=== PATIENT | female | born 1955 | race Caucasian/White ===

== ENCOUNTER → 2019-01-16 | Outpatient (CLI) | payer SELFPAY ==
[2019-01-16 15:46] VITALS: BMI 23.4
--- NOTE | 2019-01-16 16:04 | RAD_ITS ---
STUDY: X-RAY - PELVIS AND RIGHT HIP REASON FOR EXAM: Female, 63 years old. Chronic pain TECHNIQUE: 3 views of the pelvis and hip. COMPARISON: None. FINDINGS: There is a non-specific bowel gas pattern. Normal visualized soft tissue structures. Normal bilateral iliac wings, sacroiliac joints and visualized sacrum. Normal bilateral superior and inferior pubic rami. There are degenerative changes of the pubic symphysis with articular narrowing and sclerosis. Normal bilateral ischial tuberosities. There is severe degenerative changes are seen of the right hip. Extensive subchondral cysts in the femoral head and acetabulum. Flattening of the femoral head. Complete loss of joint space in the craniocaudal dimension and moderate osteophytes. RAD/HIP, UNI W/ Pelvis 2-3 Views IMPRESSION: No acute fracture or dislocation. Severe osteoarthritis. Electronically Signed: Manuel Kwok MD at 16:47 EDT , Service support ,
== END | disposition home or self-care (01) ==
LOC: HPRAD 16:04
PROVIDERS: Referring Provider Orthopaedic Surgery; Visit Provider Orthopaedic Surgery
DX: M25.551 Pain in right hip (principal)
CPT/HCPCS: 73502

== ENCOUNTER 2019-01-23 07:58 | Outpatient (RCR) | payer OTHER, SELFPAY ==
[2019-01-16 15:46] VITALS: BMI 23.4
--- NOTE | 2019-01-23 09:24 | HP.PTEVAL ---
Patient's Visit Information YOEL KAMARA is a 63 year old F referred to Physical Therapy by Joe Weber DO with a diagnosis of SEVERE OA OF RIGHT HIP ,DEGENERATIVE SCOLIOSIS LEG LENGTH DISCEREPENCY. Date of Evaluation: 01/23/19 Physical Therapist: Karri Hernandez, PT, Cert MDT, OCS - Visit Plan Frequency: 1x/Week Duration: 3 Weeks Plan: PATIENT IS CANIDATE FOR THR. PT INTERVENTIONS AQUATIC THERAPY ROM/STRENGTHENING RIGHT HIP,DLS BACK ROM - Subjective Findings: This 63 y/o female presents to physical therapy with severe OA of right hip. Patient has had right hip pain for 5 years . Pateint seen DR Gimenez ,x-rays showed severe OA. Patient has degenerative sciolosis with length discrepency right shorter. Patient pain lateral hip deep described as ache . Aggravating factors with walking ,standing and stairs ,squatting.Aleviating factors rest. Pateint is active with job demands and housework tasks. Thes tasks are impaired with pain. Pateint sleeping okay at nighT. PPateint denies parathesia/tingling. Pateint condtion affects QOL and function. SOCAIL: single. VOCATION: Own Business Self employed - Pain Right Hip Pain Intensity (Out of 10): 2 Pain Intensity Range: 10 - Objective POSTURE: mild foward posture,right shorter ,right sciolosis. GAIT: antalgic gait with right side with decrease stance. NEURO: intact. LEG LENGTH: 2 shorter. AROM: hip flexion 100 degrees,abduction 30 degrees,IR 25 degrees,ER 30 degrees. MMT: quads/hams 4/5,hip flexion 4-/5,abd 3+/5. LUMBAR ROM: flexion min loss ,extension mod loss. STAIRS: one step at time with rail - Special Tests R Hip Scour: Positive R Hip FARRUKH - Intraarticular Pathology: Positive R Hip Trendelenberg - Glut Medius: Positive - Goals Goal 1:: Patient Independant with Aquatic PT Goal Time Frame: 4-6 Weeks Goal 2:: Patient decrease pain right hip 50% or > to improve gait Goal Time Frame: 4-6 Weeks Goal 3:: Patient to improve gait with stance time community distances Goal Time Frame: 4-6 Weeks Goal 4:: Pateint to improve AROM hip flexion/abd 5 degrees > to improve function Goal Time Frame: 4-6 Weeks Goal 5:: Pateint to increase strength hip 4-/5 to improve function with gai. Goal Time Frame: 4-6 Weeks - Rehabilitation Potential Physical Therapy Diagnosis: This patient has severe OA right hip with decrease ROM,strength right hip impairs gait and walking thus benifit from skilled PT. Rehabilitation Potential: Good - Anticipated Interventions Patient/Client Instruction: Educate patient on: Condition, Plan of Care For the Purpose of:: To decrease pain, To increase ROM, To improve muscle performance and motor function, To increase tolerance to activity/condition/position, To improve ability of physical actions for home/community/work/leisure, To improve gait and locomotor functions, To improve health of tissue, To increase flexibility/ROM, To improve balance, To improve safety with gait, To improve ability to perform tasks related to life management Therapeutic Exercise to Include: Strength training, Balance training, Flexibilty training, Gait and locomotor training, In an aquatic setting, Active ROM, Dynamic Lumbar Stabilization Comment: HIP RIGHT For the Purpose of:: To decrease pain, To increase ROM, To improve muscle performance and motor function, To improve ability to perform ADL's, To increase tolerance to activity/condition/position, To improve ability of physical actions for home/community/work/leisure, To improve gait and locomotor functions, To improve health of tissue, To decrease soft tissue restriction, To increase flexibility/ROM, To improve balance Thank you for the opportunity to evaluate your patient. For Medicare and Medicare HMO plans, please review the plan of care and approve it. It will need to be FAXED BACK to us at [phone] for Medicare purposes. For Medicare only, by signing this I certify the plan of care. Please let me know if there are questions or concerns regarding this plan of care. Physician Signature: Date:
--- NOTE | 2019-01-30 14:52 | HP.PTDCNRP_ITS ---
HP - Discharge Summary (1) - Patient Information YOEL KAMARA was seen in my office for initial evaluation on 01/23/19. The following Plan of Care was established for this patient: Initial Frequency: 1x/Week Initial Duration: 3 Weeks - Anticipated Interventions Patient/Client Instruction: Educate patient on: Condition, Plan of Care For the Purpose of:: To decrease pain, To increase ROM, To improve muscle perfo rmance and motor function, To increase tolerance to activity/condition/position, To improve ability of physical actions for home/community/work/leisure, To improve gait and locomotor functions, To improve health of tissue, To increase flexibility/ROM, To improve balance, To improve safety with gait, To improve ability to perform tasks related to life management Therapeutic Exercise to Include: Strength training, Balance training, Flexibilty training, Gait and locomotor training, In an aquatic setting, Active ROM, Dynamic Lumbar Stabilization For the Purpose of:: To decrease pain, To increase ROM, To improve muscle performance and motor function, To improve ability to perform ADL's, To increase tolerance to activity/condition/position, To improve ability of physical actions for home/community/work/leisure, To improve gait and locomotor functions, To improve health of tissue, To decrease soft tissue restriction, To increase flexibility/ROM, To improve balance This patient was last seen in our office . Pertinent comments regarding their Physical therapy will appear below: Patient was seen for PT for Evaluation for HEP . 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 Patient stated ex's are helping. Patient is d/c . At this point I will be discontinuing this patient from physical therapy. I would be happy to see this patient again in the future if found appropriate by the physician. Thank you! Karri Hernandez, PT, Cert MDT, OCS
== END 2019-01-23 19:00 | disposition home or self-care (01) ==
LOC: PT 07:58
PROVIDERS: Referring Provider Orthopaedic Surgery; Visit Provider Orthopaedic Surgery
DX: M16.11 Unilateral primary osteoarthritis, right hip (principal); M41.50 Other secondary scoliosis, site unspecified; M21.70 Unequal limb length (acquired), unspecified site
CPT/HCPCS: 97110; 97161

== ENCOUNTER → 2020-07-06 10:01 | Outpatient (CLI) | payer OTHER, SELFPAY ==
[2019-01-16 15:46] VITALS: BMI 23.4
[2020-07-06 12:38] LABS: Anion Gap 6 (5-15); BUN 12 mg/dL (7-18); BUN/Creat Ratio 15.3 RATIO (10-20); Calcium,Total 9.3 mg/dL (8.5-10.1); Chloride 105 mmol/L (98-107); Cholesterol 226 mg/dL (200); Creatinine, Serum 0.78 mg/dL (0.55-1.02); EST Glomerular Filtration Rate 79 mL/min (>60); Est Glom Filt Rate - Afr Amer 95 mL/min (>60); Glucose 84 mg/dL (74-106); High Density Lipoprotein 64 mg/dL; Sodium Level 140 mmol/L (136-145); Triglycerides 120 mg/dL; Very Low Density Lipoprotein 24 mg/dL (5-40)
[2020-07-06 12:43] LABS: Vitamin D,25 Hydroxy 23.7 ng/mL
== END ==
PROVIDERS: PCP Family Medicine; Visit Provider Family Medicine
DX: Z00.00 Encounter for general adult medical examination without abnormal findings (principal)
CPT/HCPCS: 36415; 80048; 80061; 82306

== ENCOUNTER → 2020-07-07 09:05 | Outpatient (CLI) | payer OTHER, SELFPAY ==
[2019-01-16 15:46] VITALS: BMI 23.4
--- NOTE | 2020-07-07 09:09 | BD_ITS ---
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 COMPARISON: None. FINDINGS: Lumbar Spine (L1-L4): g/cm2 (0.940) / T-score (-2.0) / Z-score (-0.4) Findings are suggestive of osteopenia with a moderate fracture risk. Left Femur Total: g/cm2 (0.840) / T-score (-1.3) / Z-score (-0.2) Left Femoral Neck: g/cm2 (0.715) / T-score (-2.3) / Z-score (-0.9) Right Femur Total: g/cm2 (0.730) / T-score (-2.2) / Z-score (-1.0) Right Femoral Neck: g/cm2 (0.786) / T-score (-1.8) / Z-score (-0.4) BD/Dexa Bone Density Study IMPRESSION: The patient is considered osteopenic as outlined below according to World Freddie Organization (WHO) criteria with a high fracture risk. Reference Information: The T-score is the number of standard deviations above or below the standard which is normal for young adults at their peak bone mineral density. The World Health Organization (WHO) interprets the T-scores as follows: Above -1 Normal bone density Between -1 and -2.5 Osteopenia Equal to / or below -2.5 Osteoporosis As a practical clinical guideline, osteopenia may be graded as follows: Mild -1 through -1.5 Moderate -1.6 through -2.0 Severe -2.1 through -2.4 The Z-score is the number of standard deviations above or below age-matched controls. A Z-score of less than -1.5 would be considered abnormal. References: 1. NIH Osteoporosis and Related Bone Diseases www osteo.org 2. International Society for Clinical Densitometry www iscd.org 3. National Osteoporosis Foundation www nof.org Electronically Signed: Sp Bernardo MD at 12:46 EST , Service support ,
== END ==
PROVIDERS: PCP Family Medicine; Referring Provider Family Medicine; Visit Provider Family Medicine
DX: Z12.31 Encounter for screening mammogram for malignant neoplasm of breast (principal)
CPT/HCPCS: 77080

== ENCOUNTER → 2021-11-05 | Outpatient (CLI) | payer MEDICARE, SELFPAY ==
[2021-11-05 15:18] LABS: Absolute Lymphocyte Count 1.58 X10^3/uL (0.83-4.51); Absolute Neutrophil Count 3.8 X10^3/uL (2.0-7.7); Basophil# 0.04 X10^3/uL; Basophil% 0.7 % (0-1); Eosinophil# 0.12 X10^3/uL; Hematocrit 38.5 % (37-47); Hemoglobin 12.9 g/dL (12.0-15.0); Lymphocyte # 1.58 X10^3/ul (0.83-4.51); Lymphocyte % 26.3 % (19-41); Mean Corp Hgb Conc 33.5 g/dL (32-36); Mean Corpuscular Hgb 30.5 pg (27.0-32.0); Mean Platelet Vol. 9.9 fl (6.2-12.0); Monocyte# 0.44 X10^3/uL; Monocyte% 7.3 % (0-10); NRBC Flagged by Analyzer 0 % (0-5); Neutrophil # 3.81 X10^3/uL (2.7-7.7); Neutrophil % 63.4 % (47-70); Platelet Count 260 K/mm3 (150-450); RBC Distribution Width SD 39.9 fl (35.1-43.9); Red Blood Count 4.23 M/mm3 (4.2-5.4)
[2021-11-05 15:54] LABS: ALB/GLOB Ratio 1.1 RATIO (0.9-2.4); Albumin, Serum 3.9 g/dL (3.2-5.0); BUN 14 mg/dL (7-18); BUN/Creat Ratio 17.2 RATIO (10-20); Creatinine, Serum 0.82 mg/dL (0.55-1.02); EST Glomerular Filtration Rate 75 mL/min (>60); Est Glom Filt Rate - Afr Amer 90 mL/min (>60); Globulin 3.4 g/dL (2.2-4.2); Glucose 84 mg/dL (74-106); Protein, Total 7.3 g/dL (6.4-8.2)
[2021-11-05 15:55] LABS: AST(SGOT) 9 U/L (15-37); Alanine Aminotransfer ALT/SGPT 18 U/L (13-56); Alkaline Phosphatase 59 U/L (45-117); Anion Gap 5 (5-15); Calcium,Total 9.3 mg/dL (8.5-10.1); Chloride 105 mmol/L (98-107); Potassium 3.9 mmol/L (3.5-5.1); Sodium Level 139 mmol/L (136-145)
== END | disposition home or self-care (01) ==
LOC: MFPLAB 11:56
PROVIDERS: PCP Family Medicine; Referring Provider Family Medicine; Visit Provider Family Medicine
DX: Z01.818 Encounter for other preprocedural examination (principal)
CPT/HCPCS: 36415; 80053; 85025

== ENCOUNTER 2021-12-01 06:56 | Observation (INO) | payer MEDICARE, SELFPAY ==
--- NOTE | 2021-11-15 13:07 | PCM.HP.BLA ---
History and Physical History and Physical [facility] Patient Name: Melly Galeana : 1955 From:? SPIKE MANUEL PA-C? DATE OF SURGERY:? 12/01/2021 SCHEDULED PROCEDURE:? right total hip arthroplasty HISTORY OF PRESENT ILLNESS: Preoperative history and physical exam was performed on November 15, 2021.? This is a 66-year-old female who is been having ongoing pain for over 3 years.? She was initially seen by other orthopedic group in the past.? She has been through previous caretaker, massage therapy, physical therapy.? She has always felt she has a shorter leg on the right when compared to the left.? She had no help with any conservative measures with therapy.? She has had continued pain with the right hip.? She does get started up pain.? Pain is increased with going up and down stairs, walking, sitting, driving and getting in and out of a car.? Patient reports her symptoms have continued to progress over the years.? She has difficulty with activities of daily living including getting dressed.? Also difficulty with leisure activity such as pickle ball, dancing, running, riding a lawnmower.? Patient denies previous surgery on the right hip.? She began using a walker approximately one week ago.? She denies any chest pain, shortness of breath, fevers chills or recent infections.? After failing conservative measures and discussing treatment options with Shilo Payan, the patient does wish to proceed with a right total hip arthroplasty.? We have obtain surgical clearance and the primary care physician Dr. Acosta.? Preoperative lab work and EKG has been performed by the primary care physician. REVIEW OF SYSTEMS: Review Of Systems: Constitutional: Reports weight change, but denies change in appetite and fever. Cardiovasular: Denies chest pain, heart murmur and irregular heartbeat. Respiratory: Denies cough, pneumonia, shortness of breath, tuberculosis and wheezing. Gastrointestinal: Denies constipation, diarrhea, heartburn, nausea, rectal itching, bloody stools and vomiting. Genitourinary: Denies incontinence. Musculoskeletal: Reports trouble walking and weakness, but denies leg swelling and pain. Skin: Denies Raynaud's, history of shingles and tattoo. Neurological: Denies ambulatory dysfunction, dizziness, numbness/tingling and tremor. Psychiatric: Denies anxiety, insomnia and stress. Hematologic/Lymphatic: Denies anemia, bleeding/bruising tendency and past transfusion. Reviewed, no changes. PAST MEDICAL HISTORY: Advance Care Plan: No Advance Directives Effective Date: 08/30/2021 Past Medical History: Medical Problems: No Current Problems Accidents: None Surgical Hx: Section - X3 1979 1987 [facility] Anesthesia Complications: Anesthesia Complications - IN 1979 DURING LABOR PT STATES THEY WATCHED HER CLOSELY FOR TWO DAYS AFTER HAVING ANESTHESIA .. PT NOT SURE WHY? Assistive Devices: Glasses Reviewed and updated. SOCIAL HISTORY: Social History: Marital: .Occupation: Elder Care - SELF EMPLOYED.Work Status: Currently Working.Hand Dominance: Right-handed. Personal Habits:? Cigarette Use: Never Smoked Cigarettes.Smokeless Tobacco: Never Used Smokeless Tobacco.E-Cigarette Use: Never used.Alcohol: Denies use.Drug Use: Denies Use.Enjoy Exercising: Daily. Reviewed, no changes. VITALS: Ht: 60 Wt: 115lb Wt k.164 BMI: 22.5 BP: 128/76 Pulse: 68 Resp: 16 T: 97.9 T: 36.6C Pain Level: 0 O2SatR: 100 ALLERGIES: No Known Drug Allergy? MEDICATIONS: Vitamin D3 10 mcg (400 Unit) 1 by mouth every day, Balance Of Nature Veggies? dietary supplement, Balance Of Nature Fruits? dietary supplement, Vitamin K2-Vitamin D3 45-2000 mcg-Unit 1 by mouth every day, QC Tumeric Complex 500 mg 1 by mouth every day, Vitamin C 500 mg, High-Protein Nutritional Shake? PRE-OP EXAM:? General appearance:NORMAL? ? ? Other: Eyes: Conjunctivae and lids: NORMAL? Pupils: ERR Ears, Nose, Mouth, and Throat: NORMAL? Other: Inspection of lips, teeth and gums: NORMAL? ?Other: Neck: Examination of neck: no masses noted. Respiratory: Assessment of respiratory effort: NORMAL? ?Other: ?Auscultation of lungs: clear to auscultation no wheezes, rhonchi or rales. Cardiovascular:? Auscultation of heart: regular rate and rhythm, no murmurs, gallops or rubs. PHYSICAL EXAMINATION: Patient currently walks with an antalgic gait with use of walker.? Patient complains of right groin pain.? Range of motion: Hip flexion 50, internal rotation approximately 15, external rotation 5.? Patient does have an approximate 2 cm higher iliac crest on the right than the left and feels 3 cm short.? Sensation intact to light touch to bilateral lower extremity. IMAGING STUDIES: Previous x-rays of the right hip reveal joint space narrowing with subchondral sclerosis and osteophyte formation consistent with severe stage IV erosive osteoarthritis.? There are femoral and acetabular cyst collapse and erosion of the lateral acetabular dome and femoral head.? Previous lumbar x-rays reveal L4-L5 spondylolisthesis and mild amount of scoliosis associated with significant pelvic tilt with the right iliac crest being higher than the left consistent with her examination IMPRESSION: 1.? Severe right hip osteoarthritis 2.? Lumbar L4-L5 spondylolisthesis with scoliosis PLAN: Dr. Shilo Sheikh did discuss and review with the patient all treatment options including surgical versus nonsurgical options.? Patient does wish to proceed with the above-stated procedure.? Potential risks, benefits, and complications of the procedure were discussed in detail including but not limited to , infection, nerve and blood vessel damage, persistent pain, numbness, tingling, paresthesias, blood clot, pulmonary embolism, and requirement for possible further surgery.? The patient expressed full understanding and has no further questions for the doctor.? Patient does agree to proceed with the above-stated procedure and has signed the surgery consent form. We discussed the current risks associated with COVID 19.? This does include the risk of exposure while in the hospital.? Patient was reassured local hospitals have low infection rates and are taking all necessary precautions to avoid exposure to patients.? In addition, we discussed strategies that can be used to help limit exposure including those that limit the patient's time in the hospital.? Also using strategies to limit the patient's need for continued inpatient services after being discharged from the hospital.? Patient was notified that we will need to comply with any screening or testing the hospital wishes to perform or that surgery may be delayed for any positive results. This dictation was created using voice recognition software. Phonetic and/or grammatical errors may exist. ___? I have re-examined the patient.? There are no clinical changes since date of exam. ___? See progress notes for changes. ___? Dictated on admission Date: ? ? ?Time: Signature:
[2021-11-16 13:05] LABS: Magnesium 2.2 mg/dL (1.6-2.6)
[2021-12-01] VITALS (16 sets, daily range): BP systolic 115–162; BP diastolic 53–101; PULSE 56–82; RESP 14–18; TEMP 36.4–37; O2SAT 97–100; BMI 22.4
[2021-12-01] MEDS: Lactated Ringers 1,000 ML 999 ML IV ×2 (06:08→09:30)
[2021-12-01] MEDS: Celecoxib 200 MG Capsule 400 MG PO (06:09)
[2021-12-01] MEDS: Acetaminophen 500 MG Tablet 1000 MG PO ×3 (06:10→21:48)
[2021-12-01] MEDS: Gabapentin 600 MG Tablet PO (06:10)
[2021-12-01 06:30] LABS: Bedside Glucose 112 mg/dL (74-106)
--- NOTE | 2021-12-01 06:30 | RAD_ITS ---
STUDY: X-RAY - PELVIS AND RIGHT HIP REASON FOR EXAM: Female, 66 years old. PAIN TECHNIQUE: 1 views of the pelvis and hip. COMPARISON: None. FINDINGS: Intraoperative imaging provided for anterior right total hip replacement. RAD/Hip 1 view with Pelvis IMPRESSION: Intraoperative imaging provided for anterior right total hip replacement. Electronically Signed: pS Bernardo MD at 14:46 EDT ,
--- NOTE | 2021-12-01 06:57 | RAD_ITS ---
STUDY: X-RAY - PELVIS AND RIGHT HIP REASON FOR EXAM: Female, 66 years old. Post Op -- AP both hips on single elver/lateral of op hip PACU TECHNIQUE: 2 views of the pelvis and hip. COMPARISON: Comparison is made with prior study dated 01/16/2019. FINDINGS: The patient is status post right total hip preplacement. There is good alignment. Postoperative soft tissue changes. RAD/Hip Min 2 Views (Portable) IMPRESSION: Status post right total hip replacement. There is good alignment. Postoperative soft tissue changes. Electronically Signed: Sp Bernardo MD at 9:56 EDT ,
--- NOTE | 2021-12-01 06:59 | PCM.OPRPT ---
Report of Operation Date of Procedure: 12/01/21 Pre-Operative Diagnosis: Right hip primary osteoarthritis Post-Operative Diagnosis: Right hip primary osteoarthritis Surgery/Procedure Performed:: Right minimally invasive direct anterior total hip replacement Description of Surgical Findings:: Stable hip with equal leg length Surgeon: Shilo Sheikh front tender: Christian Pulliam Type of Anesthesia: Spinal Anesthesiologist: Reuben Hummel Special Medications: 2 g Ancef, 1 g TXA at incision, 1 g TXA closure, 10 mg Decadron, joint cocktail (5 mg Duramorph, 30 mL of 0.5% Ropivicaine, 1000 units of epinephrine, 30 mg of Toradol) Specimen's removed: Bony cuts Estimated Blood Loss (mL): 200 Fluids Replaced: 900 ml crystalloid Description of Procedure: Components used: 1. Accolade 2 [place] femoral stem size 3 132? 2. [place] trident 2 acetabular shell size 52 mm 3. Cory X3 polyethylene E 4. [place] Biolox delta 36mm, 0mm femoral head Brief history operative indications: 66 yo f who failed conservative measures for their hip osteoarthritis. X-rays were consistent with osteoarthritis including joint space narrowing, osteophyte formation and subchondral cysts. Total hip replacement was discussed with the patient with risks and benefits including but not limited to blood loss, DVTs, PEs, neurovascular damage, dislocation, general risks of anesthesia including loss of life. Patient demonstrated an understanding medical clearance is obtained the patient was consented for surgery. Procedure: On the date of procedure the patient's right hip was marked in the preoperative area. Patient was then taken back to the operating room where anesthesia assumed control of the C-spine and airway and administered anesthetic. Patient was transferred to the operating table and placed in the supine position. The hips were placed at the break of the bed and a sacral bump was placed. The right lower extremity was then prepped out in a sterile fashion using chlorhexidine while the surgeon scrubbed. The PA was vital in the positioning of the patient. Upon reentering the room the right lower extremity was draped in the standard orthopedic fashion and the incision was marked. A timeout was called and everyone agreed upon the side, the site, the procedure be performed, antibody given, and patient's identity. At this time incision was made through skin, subcutaneous tissue, and fat down to fascia. The fascia was then incised and the TFL was retracted laterally. A retractor was placed on the lateral border of the femoral neck. Attention was directed to the inferior portion of the approach and all crossing vessels were identified and appropriately coagulated. A retractor was then placed on the medial portion of the femoral neck. The anterior capsule was then cleared of all soft tissue and then H shaped capsulotomy was made. The retractors were then placed inside the capsule. The femoral neck was identified and a cleanup cut was made. At this time a power corkscrew was used to remove the femoral head. Attention was then turned toward the acetabulum where the soft tissues were appropriately retracted and the acetabulum was sequentially reamed to 52 mm. A 52 mm cup was then selected and impacted into place. 2 screws were placed orthogonally. Acetabular liner was impacted into place and locking mechanism was verified. The position of the acetabular cup was then verified under live fluoroscopy. Attention was then turned to the femur. Soft tissue releases on the medial and lateral femoral neck were appropriately done, the leg was externally rotated and lateralized. A Thompson retractor was placed medially and proximally to the greater trochanter this allowed appropriate visualization and exposure of the femoral canal. Rongeour was then used to remove excess lateral bone. A canal finder and entry broach were used to open the proximal canal. Once we verified we were down the femoral canal we subsequently broached up to a size 3 femur. The appropriate neck was placed in the previously selected head was trialed with a 0 mm neck. Traction was pulled and the hip was reduced with internal rotation. Once it was appropriately reduced and stability was checked. There was minimal shuck, equal leg lengths and appropriate stability with hyperextension and external rotation as well as with 90? flexion and internal rotation. Fluoroscopy was then also used to verify the position of the components and leg lengths using the contralateral side for comparison. The trial components were then dislocated the proximal femur was again exposed and the components were removed from the wound. The final components were verified and opened. The wound was copiously irrigated out with normal saline. The acetabulum was checked for any residual debris. The final components were placed and impacted. Traction and internal rotation were again used to reduce the hip. After adequate reduction the hip remained stable with appropriate leg lengths. The final components were once again checked with live fluoroscopy and were found to be satisfactory. The wound was then copiously irrigated with normal saline once more, and hemostasis was obtained. Closure was then done using #1 Vicryl runner to close the fascia. A 2-0 vicryl interuppted sutures were used to close the subcutaneous skin. A 3-0 Monocryl and Steri-Strips were used for final skin closure. A Silverlon dressing was placed. Patient was awakened by anesthesia and transferred to the rvan alstyne. Patient was then transferred to the PACU for recovery. During the course of the procedure the physician hot mill operator (PE) played a vital role. Their intimate knowledge of my steps in the procedure aided in safe and expedient completion of the procedure. The PE played a vital rolls in positioning particularly in obtaining the appropriate positioning of the sacral bump. The PE was also vital in the retraction of soft tissues during the exposure and especially the femoral work as this is a vital part of the procedure to prevent complications and fractures. The PE was also vital and protecting soft tissues during times of bony cuts and reaming. He also played a vital role in closure with my direct supervision. The PE was also important during reduction and dislocation of the joint and trials intraoperatively. Postoperative plan: Patient will get 24 hours postop antibiotics. Patient will get in-house physical therapy and will be weight-bear as tolerated. Patient will follow up in office in 2 weeks for a wound check and x-rays. Aspirin 81 mg twice daily. Complications No intraoperative complications Admit VTE Documentation VTE Present on Admission: No VTE Mechan Device Prophylaxis: SCD's and Thigh High RACHEL Hose VTE Pharm Prophylaxis ordered?: Yes
[2021-12-01] MEDS: Cefazolin 2 GM in 0.9% Normal Saline 100 ML IV (07:27)
--- NOTE | 2021-12-01 07:30 | HIP_PTH ---
PATIENT: YOEL KAMARA LOC: MS3 U#:[id number] AGE/SX: 66/F ROOM: [facility] RE12/01/[address]: Dr. Shilo Sheikh MD : 1955 BED: 1 DIS: 12/02/2021 SPEC #: [id number] RECD: 12/01/21 10:38 STATUS: IVAN ESTRADA #: [id number] DAVID: 12/01/21 07:[address]: Shilo Sheikh DEPT: SURGICAL PATHOLOGY RECD BY: Olivia Price ENTERED: 12/01/21 12:15 SP TYPE: TOTAL HIP OTHR DR: MD Dr. Jett Ulloa MD Tissues: Hip, NOS Procedures: Decalcification bone/plaque Surgery Specimen Level IV HEADER OPERATION: ERAS, total hip anterior approach PRE-OP DIAGNOSIS: Severe right hip osteoarthritis TISSUE SUBMITTED: Bone and soft tissue of right hip MICROSCOPIC DIAGNOSIS Bone and tissue of right hip, total hip resection: Consistent with severe degenerative joint disease. AM:renee 12/06/2021 MICROSCOPIC DESCRIPTION Slides are reviewed. GROSS DESCRIPTION Received is one container labeled with the patient's name and designated bone and soft tissue hip, right. The specimen consists of a disfigured light estrada femoral head measuring 5 x 4.5 x 4.5 cm. The articular surface displays prominent osteophyte formation, eburnation and bone erosion. Also present in the specimen container are multiple irregular fragments of bone and bone reamings measuring in aggregate 7 x 6 x .15 cm. Rehabilitation Psychologist sections are submitted in two cassettes as follows: 1 ? bone reamings, 2 - bone after decalcification. / AM:renee 12/01/2021 TC:5 [facility]: [id number], [id number]
[2021-12-01] MEDS: Lactated Ringers 1,000 ML 15 ML IV ×2 (07:32→10:31)
[2021-12-01] MEDS: dexAMETHasone 10 MG/ML Vial IV (07:42)
[2021-12-01] MEDS: TXA 1000mg in NS100 100ml (IVPB at Incision) 660 MG IV (07:44)
[2021-12-01] MEDS: TXA 1000mg in NS100 100ml (IVPB at Closure) 660 MG IV (08:46)
--- NOTE | 2021-12-01 13:01 | PCM.PN.HOSP ---
Subjective Subjective Shivering post op. Feeling better now. Objective Data Objective Data Vital Signs: Vital Signs Temp Pulse Resp BP Pulse Ox O2 Del Method O2 Flow Rate 36.4 C L 56 L 16 150/68 H 100 Simple Mask 4 12/01/21 11:33 12/01/21 11:33 12/01/21 11:33 12/01/21 11:33 12/01/21 11:33 12/01/21 11:33 12/01/21 11:10 Oxygen Flow Rate (L/min) 4 Oxygen Delivery Method Simple Mask Weight: 52 kg Body Mass Index (BMI) 22.4 Intake & Output: Intake and Output for Last 24 Hours 11/29/21 11/30/21 12/01/21 23:59 23:59 23:59 Intake Total 3432 / 3432 Output Total 1025 / 1025 Balance 2407 / 2407 Lab / Micro Data Labs: Laboratory Results - last 24 hr 12/01/21 05:59: POC Glucose 112 H Micro: Microbiology 11/16/21 11:44 Swab (Method) Nasal Screen MRSA/MSSA - Final Radiography Diagnostic Testing: Radiology Impression Hip X-Ray 12/01/21 06:57 IMPRESSION: Status post right total hip replacement. There is good alignment. Postoperative soft tissue changes. Electronically Signed: Sp Bernardo MD at 9:56 EDT , Physical Exam Const alert and no apparent distress Resp normal respiratory effort, no retractions, no use of accessory muscles and clear to auscultation bilaterally Cardio regular rate, regular rhythm, S1 normal heart sound and S2 normal heart sound GI normal to inspection, nondistended, normoactive bowel sounds, soft to palpation, non-tender and non-distended Psych affect normal Assessment & Plan Assessment/Plan (1) Medical condition not demonstrated: PLAN: Plan Right hip replacement mgmt per ortho No active medical conditions at present. Hospital service will sign off. Please reconsult if medical issues arise. Charges/Coding Visit Charges Inpatient E&M: 39645 Subs Hosp L2
[2021-12-01] MEDS: Senna/Docusate Sodium 1 Tablet 2 TABLET PO ×2 (13:39→21:48)
[2021-12-01] MEDS: Aspirin 81 MG TAB.CHEW PO ×2 (13:39→21:48)
[2021-12-01] MEDS: Famotidine 20 MG Tablet PO (13:39)
[2021-12-01] MEDS: Cefazolin 1 GM/50 ML BAG IV ×2 (16:10→23:31)
[2021-12-01] MEDS: Ketorolac 15 MG/ML Vial IV (20:18)
[2021-12-02 03:40] VITALS: BP 117/59; PULSE 66; RESP 16; TEMP 36.4; O2SAT 99
[2021-12-02] MEDS: Acetaminophen 500 MG Tablet 1000 MG PO ×2 (05:18→13:35)
[2021-12-02 07:30] LABS: Hematocrit 30.5 % (37-47); Hemoglobin 10.3 g/dL (12.0-15.0); Mean Corp Hgb Conc 33.8 g/dL (32-36); Mean Corpuscular Hgb 30.6 pg (27.0-32.0); Mean Corpuscular Volume 90.5 fL (81-99); Mean Platelet Vol. 10.3 fl (6.2-12.0); Platelet Count 182 K/mm3 (150-450); RBC Distribution Width CV 11.9 % (11.6-14.6); RBC Distribution Width SD 39.5 fl (35.1-43.9); Red Blood Count 3.37 M/mm3 (4.2-5.4); White Blood Count 14.2 K/mm3 (4.4-11.0)
[2021-12-02 08:19] LABS: Anion Gap 5 (5-15); BUN 17 mg/dL (7-18); BUN/Creat Ratio 24.7 RATIO (10-20); Calcium,Total 8.7 mg/dL (8.5-10.1); Chloride 108 mmol/L (98-107); Creatinine, Serum 0.69 mg/dL (0.55-1.02); EST Glomerular Filtration Rate 91 mL/min (>60); Est Glom Filt Rate - Afr Amer 110 mL/min (>60); Estimated Creatinine Clearance 39.75 ml/min; Glucose 97 mg/dL (74-106); Potassium 3.7 mmol/L (3.5-5.1); Sodium Level 140 mmol/L (136-145)
[2021-12-02 09:05] VITALS: BP 111/53; PULSE 81; RESP 18; TEMP 36.9; O2SAT 99
[2021-12-02] MEDS: 0.9% Saline Lock 10 ML Syringe IV (09:39)
[2021-12-02] MEDS: Famotidine 20 MG Tablet PO (09:39)
[2021-12-02] MEDS: Ketorolac 15 MG/ML Vial IV (09:39)
[2021-12-02] MEDS: Aspirin 81 MG TAB.CHEW PO (09:39)
[2021-12-02] MEDS: Senna/Docusate Sodium 1 Tablet 2 TABLET PO (09:39)
--- NOTE | 2021-12-02 10:16 | PN.ORTHO_ITS ---
Subjective Subjective The patient was sitting in the patient was sitting in bedside chair upon examination with family member present. Patient denies any chest pain, shortness of breath, dizziness, lightheadedness, nausea or vomiting, or calf pain. Pain is controlled on medications. No adverse overnight events. Patient overall is doing very well this morning. She has tolerated therapy. She is wishing to go home. Objective Data Objective Data Vital Signs: Vital Signs Temp Pulse Resp BP Pulse Ox O2 Del Method O2 Flow Rate 98.5 F 81 18 111/53 L 99 Room Air 4 12/02/21 09:05 12/02/21 09:05 12/02/21 09:05 12/02/21 09:05 12/02/21 09:05 12/02/21 09:05 12/01/21 11:10 Oxygen Flow Rate (L/min) 4 Oxygen Delivery Method Room Air Weight: 52 kg Body Mass Index (BMI) 22.4 Intake & Output: Intake and Output for Last 24 Hours 11/30/21 12/01/21 12/02/21 23:59 23:59 23:59 Intake Total 3532 / 3532 262.25 / 262.25 Output Total 1025 / 1025 Balance 2507 / 2507 262.25 / 262.25 Lab / Micro Data Result Diagrams: 12/02/21 06:35 12/02/21 06:35 Labs: Laboratory Results - last 24 hr 12/02/21 06:35: WBC 14.2 H, RBC 3.37 L, Hgb 10.3 L, Hct 30.5 L, MCV 90.5, MCH 30.6, MCHC 33.8, RDW Std Deviation 39.5, RDW Coeff of Simón 11.9, Plt Count 182, MPV 10.3 12/02/21 06:35: Sodium 140, Potassium 3.7, Chloride 108 H, Carbon Dioxide 27.0, Anion Gap 5, BUN 17, Creatinine 0.69, Estim Creat Clear Calc 39.75, Est GFR (MDRD) Af Amer 110, Est GFR (MDRD) Non-Af 91, BUN/Creatinine Ratio 24.7 H, Glucose 97, Calcium 8.7 Micro: Microbiology 11/16/21 11:44 Swab (Method) Nasal Screen MRSA/MSSA - Final Radiography Diagnostic Testing: Radiology Impression Hip/Pelvis X-Ray 12/01/21 06:30 IMPRESSION: Intraoperative imaging provided for anterior right total hip replacement. Electronically Signed: Sp Bernardo MD at 14:46 EDT , Hip X-Ray 12/01/21 06:57 IMPRESSION: Status post right total hip replacement. There is good alignment. Postoperative soft tissue changes. Electronically Signed: Sp Bernardo MD at 9:56 EDT , Physical Exam Narrative Vital signs stable and afebrile. RACHEL hose and SCDs are in place bilaterally Right hip is soft and supple Patient is able to plantarflex and dorsiflex actively. Sensation is intact to light touch to saphenous, sural, superficial and deep peroneal, and tibial distribution. Dressing is clean dry and intact. Negative Homans bilaterally, negative signs and symptoms of DVT. Const alert, oriented x3 and no apparent distress Assessment & Plan Assessment/Plan (1) Status post total replacement of right hip: PLAN: 1. S/P right direct anterior total hip arthroplasty POD #1 2. Continue Pain Medications: Tylenol, meloxicam, oxycodone. Do not take any other nonsteroidal anti-inflammatories while using meloxicam/Mobic. Patient will have oxycodone prescription placed on her chart and only fill if needed 3. DVT Prophylaxis: Take 81 mg aspirin twice daily for 4 weeks postoperatively for DVT prophylaxis. Patient denies previous history of DVT or pulmonary embolism 4. PT/OT: Weightbearing as tolerated with walker. Patient is doing very well with therapy. 5. H & H: 10.3/30.5, asymptomatic. Postoperative anemia secondary to acute blood loss from surgery without any intra operative complications. 6. Reactive leukocytosis: Currently 14.2, afebrile. Patient did receive Decadron intraoperatively 7. Continue postoperative medical management per medicine: Medicine signed off on patient yesterday and only reconsult if needed 8. Encouraged Incentive Spirometry 9. Disposition: Orthopedically patient is doing very well. Pain is well cont rolled. She has tolerated therapy. At this time plan will be for discharge home this afternoon. She would like her medications E scribed to [facility]. Oxycodone will be placed on the chart. She will follow-up per postop instructions. Patient has outpatient physical therapy established. She will contact her office with any complications or concerns upon discharge. I have reviewed the [place] Automated Rx Reporting System (OARRS) report for this patient for refill pattern and other prescriber involvement as part of the appropriate surveillance for the provision of acute and chronic controlled medications. The report was requested and reviewed on the date of this entry an d was considered in the prescribing process. This dictation was created using voice recognition software. Phonetic and/or grammatical errors may exist.
--- NOTE | 2021-12-02 10:25 | DCINST_ITS ---
Discharge Instructions Diet Discharge Diet: No restrictions Activity Discharge Activity: May Not Drive (No driving for 6 weeks postoperatively and must be off all narcotics walking 100 feet without use of cane or walker) May shower in (days): 1 (only if incision is dry and without drainage. Do NOT soak/submerge in tub/pool/gomez/stream/hot tub.)) Ice area for (Minutes): 20 (Every 1-2 hours while awake[address] barrier b etween ice and skin.) Weight Bearing Status: Weight bearing as tolerated Keep extremity elevated above heart level: Operative Extremity Additional Activity Instructions:: Follow [facility] Post-op Instructions. Once postoperative dressing has been removed only use gentle soap and water over the incision. Do not use any ointments, Neosporin, salves, alcohol pads over the incision for 6 weeks postoperatively. Do not submerge underwater for 6 weeks postoperatively. Wear elastic stockings for 2 weeks. Do NOT use alcohol with narcotic pain medication. Do NOT make important decisions while taking narcotic medication. If you have problems with taking your medication (rash, itching, nausea, etc.) call the office at once. Dressing / Incision Call your doctor if your incision/area has: Continuous Slow Oozing, Sudden Increased Bleeding, Increased Pain/ Swelling, Increased Redness and Foul Smelling Discharge Call your doctor if you observe: Fever of 101 or Higher, Shortness of breath, Chest pain, Calf discomfort and Uncontrolled pain Remove Dressing in: 4 days (Okay to remove dressing on December 06, 2021) Additional Dressing/Incision Instructions:: Follow [facility] Post-op Instructions. Once postoperative dressing has been removed, only use gentle soap and water over the incision. Do not use any ointments, Neosporin, salves, alcohol pads over the incision for 6 weeks postoperatively. Do not submerge underwater for 6 weeks postoperatively. Continue with RACHEL hose/elastic stockings for 2 weeks postoperatively. May remove at nighttime but needs to be placed back on the leg during the day. Do NOT use alcohol with narcotic pain medication. Do NOT make important decisions while taking narcotic medication. If you have problems with taking your medication (rash, itching, nausea, etc.) call the office at once. Follow Up Care Test Results: Test results from this visit will be discussed in further detail at your follow- up appointment, if applicable. Discharge Plan Admission Admit Date/Time: 12/01/21 06:56 Attending Provider: Shilo Sheikh Primary Care Provider: Jett Acosta Consulting Providers: Reuben Hummle ; Reuben Ayala ; Mary Ann Joyner ; Wendi Gutierrez ; Ming Reyes ; Angelito Deras Discharge Orders/Prescriptions Prescriptions: New acetaminophen 500 mg Tablet 1,000 mg PO Q8 14 Days Qty: 84 0RF Rx Instructions: Do not take more than 3000 mg Tylenol in a 24-hour period. aspirin 81 mg Tablet,Chewable 81 mg PO BID 30 Days Qty: 60 0RF Rx Instructions: Take 81 mg aspirin twice daily for 4 weeks postoperatively for DVT prophylaxis famotidine 20 mg Tablet 20 mg PO DAILY 30 Days Qty: 30 0RF meloxicam 7.5 mg Tablet 7.5 mg PO BID Qty: 60 0RF Rx Instructions: Do not take any other nonsteroidal anti-inflammatories while using meloxicam/Mobic. oxycodone 5 mg Tablet 5 - 10 mg PO Q4H PRN PRN (Reason: Pain Score 4-10) 5 Days Qty: 30 0RF sennosides-docusate sodium [Stool Softener-Stimulant Laxat] 8.6-50 mg Tablet 2 tab PO BID Qty: 20 0RF Rx Instructions: Take until first bowel movement, then as needed Referrals / Follow Up: Physical,Therapy [Other] - 12/06/21 9:00 am Jett Acosta MD [Primary Care Provider] - Christian Pulliam PA-C [PHYSICIAN TRUCKLOAD OWNER OPERATOR] - 12/16/21 1:45 pm Disposition Disposition (needs filled in before D/C Order can be placed): Home, Self Care
--- NOTE | 2021-12-02 10:29 | CASEMGMT ---
RN KEON CATTLE TRADER CM to room to meet with patient for initial transition planning/care coordination assessment. QUINTON HERBERT introduced self and role at [facility].? Pt voices understanding and consents to assessment at this time.? Pt sitting up in chair in no distress at this time.? Adri Hayes, in room and pt agreeable to her being present during assessment. Pt is A/O at this time and answers all questions appropriately.?? Care providers, pharmacy, and demographics verified/updated at this time. PCP: Dr Acosta Specialists: Dr Sheikh Preferred Pharmacy: [facility] Retail Insurance: [facility] Prescription Benefit:?Yes Living Will/HPOA:? Pt does not currently have LW/HCPOA. Pt made aware that she can contact [facility] as an out-pt and make appt in the future if she decides s would like to talk with someone about this or would like to utilize [facility] social work for advanced directive completion. She has [employer] card with information and contact number. Pt expresses understanding.? LNOK: Adri Hayes Living Arrangements: Lives alone in one-story home w/2 steps to enter. Independent prior to surgery. Family supportive and will be coming to help pt. Transportation:?Pt, dtr, other family DME: ?States has the following DME:?Extended tub bench, rails, commode riser w/TSR, walker ?Pt states no need for further DME at this time.? HHC/SNF: No hx of either. Pt plans to go to [facility] for OP therapy. 1st appt is 12/06 @ 9 AM. Pt is aware. Pt wishes to return home and states has no concerns with going home at time of discharge.?? CM to follow for any discharge planning/needs.? Pt voices no concerns/needs at this time.? Advised pt to ask for CM if any questions/concerns/needs arise.? Voices understanding. [facility] form explained re: Observation status for treatment of right total hip arthroplasty.? Explained hospitalization will be paid per?her insurance policy for Outpatient billing?and condition will continue to be evaluated for Inpt necessity. Also let pt know that [facility] sends paper in the billing packet with their phone number if questions arise. Discussed Pharmacy section of [facility] form and self administered medication guideline.? Pt verbalizes understanding and does not have further questions. ?Form signed, copy made and placed in chart, and original given to pt. PLAN:?Home w/family support and discharge plans in place. Cruz NEILN RN CM
[2021-12-02 13:34] VITALS: BP 112/49; PULSE 65; RESP 18; TEMP 36.6; O2SAT 100
== END 2021-12-02 14:28 | disposition home or self-care (01) ==
LOC: SDC 08:28 → MS3 08:28
PROVIDERS: Anesthesiology; Admitting Provider Specialist; PCP Family Medicine; Referring Provider Specialist; Visit Provider Specialist
PROC: (CPT 27284; principal; 2021-12-01 07:05)
DX: M16.11 Unilateral primary osteoarthritis, right hip (principal); M43.16 Spondylolisthesis, lumbar region; M41.86 Other forms of scoliosis, lumbar region; R53.1 Weakness; Z79.899 Other long term (current) drug therapy
CPT/HCPCS: 27130; 01214; 36415; 73501; 73502; 76000; 80048; 82962; 83735; 85027; 87081; 88305; 88311; 96365; 96366; 96375; 96376; 97110; 97116; 97162; 97166; 97530; 97535; 99218; 99251; C1776; J7120; A4216; G0378; G0463; J3475

== ENCOUNTER → 2023-08-31 | Outpatient (CLI) | payer MEDICARE, SELFPAY ==
[2023-08-31 18:05] LABS: Anion Gap 5 (5-15); BUN 12 mg/dL (7-18); BUN/Creat Ratio 15.6 RATIO (10-20); Calcium,Total 9.2 mg/dL (8.5-10.1); Chloride 108 mmol/L (98-107); Creatinine, Serum 0.77 mg/dL (0.55-1.02); EST Glomerular Filtration Rate 79 mL/min (>60); Est Glom Filt Rate - Afr Amer 96 mL/min (>60); Glucose 92 mg/dL (74-106); Potassium 3.7 mmol/L (3.5-5.1); Sodium Level 142 mmol/L (136-145)
== END | disposition home or self-care (01) ==
LOC: MFPLAB 15:15
PROVIDERS: PCP Family Medicine; Visit Provider Family Medicine
DX: Z00.00 Encounter for general adult medical examination without abnormal findings (principal)
CPT/HCPCS: 36415; 80048